=== PATIENT | male | born 2000 | race Caucasian/White ===

== ENCOUNTER 2025-05-06 00:03 | Emergency (ER) | payer MEDICAID, SELFPAY ==
--- NOTE | ~2025-05-06 | XR_ITS ---
CLINICAL HISTORY: cough sob 2 view chest x-ray Comparison: None provided Findings: The lungs are clear. Heart size is normal. No acute fracture. IMPRESSION: 1. No acute findings. This document has been electronically signed by: Miriam Young MD on 05/06/2025 03:07:04
[2025-05-06 00:06] VITALS: BP 118/62; PULSE 86; RESP 16; TEMP 36.6; O2SAT 98; BMI 23.6
[2025-05-06 01:12] LABS: COVID-19 Test Negative (Negative); IDNOW Serial# 08D9AD1C; IDNOW Serial# 6674DD1D; Influenza B2 Negative (Negative)
[2025-05-06 04:10] VITALS: PULSE 81; RESP 24; O2SAT 95
[2025-05-06] MEDS: Albuterol Sulfate 5 MG, Albuterol/Iprat 2.5/0.5MG 3 ML 3 ML INHALE (04:14)
--- NOTE | 2025-05-06 04:28 | ED.GENADULT ---
HPI - General Adult General Chief complaint: Upper Respiratory Symptoms Stated complaint: SoB Time Seen by Provider: 05/06/25 03:22 Source: patient Limitations: language barrier History of Present Illness ED Provider: Debbie Colby PA-C HPI narrative: 25-year-old male with a history of asthma presents with wheezing times 2-3 days. Patient states he had cough and cold symptoms the beginning of the month, over the past few days they have returned. Associated dry repetitive cough with the wheezing. Denies fever, or sick contacts with similar symptoms. Related Data Previous Rx's ?Medication ?Instructions ?Recorded albuterol sulfate 90 mcg/actuation 2 puff inhalation Q4-6H PRN 05/06/25 aerosol inhaler (Ventolin HFA) shortness of breath or wheezing #8.5 grams prednisone 20 mg tablet 40 mg (2 x 20 mg) PO DAILY #8 tabs 05/06/25 Allergies Allergy/AdvReac Type Severity Reaction Status Date / Time No Known Allergies Allergy Verified 05/06/25 00:08 Review of Systems Review of Systems: Yes all other systems are reviewed and are negative Constitutional: Constitutional: Denies fatigue and Denies fever(s) Cardiovascular: Cardiovascular: Denies chest pain Respiratory: Respiratory: Denies chest congestion, Reports cough and Reports wheezing Endocrine: Endocrine: Denies fatigue Allergic/Immunologic: Allergic/Immunologic: Reports wheezing PMFSH Past Medical History Attestation statement: The following information was validated with the patient. Social History Social History Smoked in Last 30 Days: Yes Use of substances other than those prescribed or required for medical reasons: No Advance Directives: No Advance Directives Information Provided: Yes Do you have a plan to hurt others: No Plan Physical Exam ED Vital Signs: Vital Signs - 24 hr 05/06/25 00:06 05/06/25 04:10 Temperature 97.8 F Pulse Rate 86 81 Respiratory Rate 16 24 H Blood Pressure 118/62 Pulse Oximetry 98 Oxygen Delivery Method Room Air BMI result Body Mass Index 23.6 Const Other: Alert well-appearing Orientation/consciousness: patient oriented x3 Resp Other: Expiratory wheezes noted posterior valentin Effort & Inspection: normal respiratory effort Cardio Other: Normal peripheral perfusion Skin Other: Warm dry no rash Neuro General: patient oriented x3, gait normal, no focal motor deficits and CN's II-XI intact bilaterally Psych Other: Cooperative Medications Administered Discontinued Medications Generic Name Dose Route Start Last Admin Trade Name Freq PRN Reason Stop Dose Admin Albuterol Sulfate 5 mg/ 0 mg 05/06/25 04:10 05/06/25 04:14 Albuterol/Ipratropium 3 ml INHALE 05/06/25 04:11 7.5 each ONCE ONE Administration Medical Decision Making Medical Decision Making [facility] Narrative: 25-year-old male with a history of asthma presents with wheezing times 2-3 days. Patient states he had cough and cold symptoms the beginning of the month, over the past few days they have returned. Associated dry repetitive cough with the wheezing. Denies fever, or sick contacts with similar symptoms. Problem: Asthma History: Per patient I have considered the following differential diagnoses: Asthma exacerbation, bronchitis, viral syndrome, pneumonia Plan: Viral panel and chest x-ray ordered from triage, no pneumonia, viral panel negative. We will give an updraft and steroid. I have independently reviewed the following tests: Labs: COVID and influenza negative Chest x-ray:Findings: The lungs are clear. Heart size is normal. No acute fracture. IMPRESSION: 1. No acute findings. Differential Diagnosis Differential Diagnoses: The differential diagnosis associated with the presentation includes See medical decision-making Admission/Observation Consideration of admission/observation: Escalation of care including admission/observation considered Not applicable Lab Data [facility] Lab Attestation statement: I reviewed the patient's lab results. Labs: Lab Results 05/06/25 Range/Units 00:46 COVID-19 (YAMINI) Negative (Negative) COVID-19 Clin Com See Note Influenza Type A (ELLE) Negative (Negative) Influenza Type B (ELLE) Negative (Negative) Influenza A & B Note See Note Radiology Impression Discussion of test interpretation with radiology: I have reviewed the radiologist's reading. Discharge Plan Discharge Clinical Impression: Asthma exacerbation Patient Disposition: Home, Self-Care Instructions: Asthma (ED) Additional Instructions: You are being treated for an asthma exacerbation. Take the steroid as directed use your inhaler as directed. The chest x-ray was clear, you were tested for COVID and influenza the viral panel was negative. Follow up with your primary care as needed. Prescriptions: New albuterol sulfate [Ventolin HFA] 90 mcg/actuation HFA aerosol inhaler 2 puff inhalation Q4-6H PRN (Reason: shortness of breath or wheezing) Qty: 8.5 0RF prednisone 20 mg tablet 40 mg PO DAILY Qty: 8 0RF Print Language: Icelandic
[2025-05-06 04:45] VITALS: BP 128/72; PULSE 109; RESP 20; TEMP 36.6; O2SAT 98
== END 2025-05-06 04:46 | disposition home or self-care (01) ==
PROVIDERS: Emergency Provider Emergency Medicine
DX: J45.901 Unspecified asthma with (acute) exacerbation (principal); R05.9 Cough, unspecified; Z03.818 Encounter for observation for suspected exposure to other biological agents ruled out
CPT/HCPCS: 71046; 87502; 87635; 94640; 99284

== ENCOUNTER → 2025-05-06 00:24 | Outpatient (BNV) | payer MEDICAID, SELFPAY | PROVIDERS: Visit Provider Radiology Diagnostic Radiology | DX: R05.9 Cough, unspecified (principal); R06.02 Shortness of breath | CPT/HCPCS: 71046 ==